=== PATIENT | female | born 1975 | race African-American/Black ===

== ENCOUNTER 2017-03-27 11:53 | Observation (INO) | payer OTHER ==
[~2017-03-27] VITALS: Ht 147.3 cm; Wt 76.0 kg
[2017-03-27 13:00] VITALS: BP 111/65; TEMP 98.7; Ht 147.3 cm; Wt 76.0 kg
[2017-03-27 13:59] LABS: POTASSIUM 3.1 mmol/L (3.6-5.2); SODIUM 137 mmol/L (136-145)
[2017-03-27 14:20] LABS: PLATELET COUNT 366 K/uL (152-353)
[2017-03-27 16:00] VITALS: BP 130/75; TEMP 97.8
--- NOTE | 2017-03-27 17:57 | NUR ---
DR. EASTON AT BEDSIDE TO SEE PT
[2017-03-27 20:00] VITALS: BP 118/59; TEMP 98.8
[2017-03-28] VITALS (11 sets, daily range): BP systolic 109–142; BP diastolic 60–80; TEMP 97.8–99.1
[2017-03-28 05:56] LABS: POTASSIUM 3.6 mmol/L (3.6-5.2); SODIUM 139 mmol/L (136-145)
[2017-03-28 06:33] LABS: PLATELET COUNT 304 K/uL (152-353)
--- NOTE | 2017-03-28 11:49 | NUR ---
PT GONE TO OR AT THIS TIME VIA WHEELCHAIR PER OR STAFF
--- NOTE | 2017-03-28 14:40 | NUR ---
RECEIVED REPORT FROM SNEHA GARCIA RN IN OR
--- NOTE | 2017-03-28 14:50 | NUR ---
PT BACK TO FLOOR FROM OR VIA STRETCHER PER OR STAFF
[2017-03-29] VITALS: BP 95/56; TEMP 99.4
[2017-03-29 04:00] VITALS: BP 95/56; TEMP 99.4
[2017-03-29 06:42] LABS: PLATELET COUNT 258 K/uL (152-353)
[2017-03-29 06:51] LABS: POTASSIUM 3.2 mmol/L (3.6-5.2); SODIUM 140 mmol/L (136-145)
[2017-03-29 08:20] VITALS: BP 107/57; TEMP 98.8
[2017-03-29 11:45] VITALS: BP 110/62; TEMP 98.5
[2017-03-29 16:00] VITALS: BP 90/50; TEMP 98
--- NOTE | 2017-03-29 16:49 | NUR ---
DR. MAST CALLED WITH NEW ORDERS FOR PT TO BE D/C'D.
--- NOTE | 2017-03-29 17:45 | NUR ---
IV D/C'D WITH TIP INTACT PRESSURE DRESSING APPLIED. D/C INSTRUCTIONS GIVEN. PT AND FAMILY VERBALIZED UNDERSTANDING.
--- NOTE | 2017-03-29 18:00 | NUR ---
PT D/C'D HOME IN STABLE COND VIA WC.
== END 2017-03-29 18:00 | disposition home or self-care (01) ==
LOC: MED/SURG 11:53
PROVIDERS: ADMIT Family Medicine
PROC: 0FT44ZZ Resection of Gallbladder, Percutaneous Endoscopic Approach (ICD-10-PCS; principal; 2017-03-28)
DX: K80.12 Calculus of gallbladder with acute and chronic cholecystitis without obstruction (principal)
CPT/HCPCS: 36415; 36591; 80053; 83605; 85027; 87040; 96360; 96361; 96367; 96372; 99220; G0378; G0379; J0132; J0330; J0690; J1100; J1170; J1644; J1885; J2001; J2175; J2250; J2405; J2550; J2704; J2710; J3010; J3490; S0028

== ENCOUNTER 2017-08-31 08:08 | Outpatient (CLI) | payer OTHER | END 2017-08-31 23:27 | disposition home or self-care (01) | LOC: MAMMO 08:08 | DX: Z12.31 Encounter for screening mammogram for malignant neoplasm of breast (principal) ==

== ENCOUNTER 2020-06-23 09:38 | Outpatient (CLI) | payer OTHER | END 2020-06-23 19:16 | disposition home or self-care (01) | LOC: RAD 09:38 | PROVIDERS: ATTEND Nurse Practitioner Family | DX: R06.00 Dyspnea, unspecified (principal) ==